=== PATIENT | female | born 1975 | race Caucasian/White ===

== ENCOUNTER 2021-11-09 16:44 | Emergency (ER) | payer OTHER ==
[2021-11-09 16:52] VITALS: BP 193/105
[2021-11-09 16:54] VITALS: BP 141/85
[2021-11-09 17:00] VITALS: BP 149/94
[2021-11-09] MEDS ORDERED: PREDNISONE50 MG PO (17:16)
[2021-11-09] MEDS ORDERED: FLEXERIL5 M1 PO (17:16)
[2021-11-09] MEDS ORDERED: TRAMADOL HYDROC50 M1 PO (17:16)
[2021-11-09 17:31] VITALS: BP 142/72
[2021-11-09 18:01] VITALS: BP 126/84
[2021-11-09 18:06] VITALS: BP 126/84
== END 2021-11-09 18:06 | disposition home or self-care (01) | DRG 552 ==
LOC: ED 16:44
DX: M54.42 Lumbago with sciatica, left side (principal); E11.9 Type 2 diabetes mellitus without complications

== ENCOUNTER 2021-12-22 22:13 | Emergency (ER) | payer OTHER ==
[~2021-12-22] VITALS: Ht 177.8 cm; Wt 100.0 kg
[~2021-12-22 22:13] MED LIST: FLEXERIL5 M1 PO; PREDNISONE50 MG PO; TRAMADOL HYDROC50 M1 PO
[2021-12-22 23:04] VITALS: BP 138/70
[2021-12-22 23:31] VITALS: BP 129/70
[2021-12-23] VITALS (7 sets, daily range): BP systolic 124–159; BP diastolic 62–95
[2021-12-23 00:08] LABS: HEMATOCRIT 45.3 % (37.0-47.0); HEMOGLOBIN 14.7 g/dl (12.0-16.0); IMMATURE GRANULOCYTES 0.3 % (0.0-5.0); MEAN CELL VOLUME 89.7 fL CALC (80.0-100.0); MEAN CORPUSCULAR HGB 29.1 pG CALC (26.0-32.0); MEAN CORPUSCULAR HGB CONC 32.5 g/dL CAL (32.0-36.0); NEUT# 6.41 thou/uL (2.00-7.15); RED BLOOD COUNT 5.05 mill/uL (4.20-5.60); RED CELL DISTRI WIDTH 12.9 % (11.5-15.5)
[2021-12-23 00:15] LABS: URINE BILIRUBIN - DIPSTICK NEGATIVE (NEGATIVE); URINE BLOOD DIPSTICK NEGATIVE (NEGATIVE); URINE COLOR YELLOW; URINE GLUCOSE - DIPSTICK >=1000 mg/dL (NEGATIVE); URINE KETONE NEGATIVE (NEGATIVE); URINE LEUK ESTERASE NEGATIVE (NEGATIVE); URINE PROTEIN - DIPSTICK NEGATIVE (NEG-TRACE); URINE SPECIFIC GRAVITY 1.015; URINE UROBILINOGEN - DIPSTICK 0.2 E.U./dL (0.2)
[2021-12-23 00:16] LABS: URINE NITRITE - DIPSTICK NEGATIVE (Negative)
[2021-12-23 00:30] LABS: ALBUMIN 4.2 g/dL (3.2-5.0); ALKALINE PHOSPHATASE 182 u/l (38-126); AMYLASE 86 u/l (30-110); ANION GAP 12 (6-22 (CALC)); BILIRUBIN, TOTAL 1.5 mg/dL (0.0-1.4); BUN 11 mg/dL (7-17); BUN/CREATININE RATIO 22 (12-20 (CALC)); CARBON DIOXIDE 22 mmol/l (22-30); CHLORIDE 108 mmol/l (95-108); CREATININE 0.5 mg/dL (0.5-1.0); GFR > 60 ML/MIN (>=60 (CALC)); GFR FOR AFR.AMER. > 60 ML/MIN (>=60 (CALC)); LIPASE 104 u/l (23-300); SGOT/AST 54 u/l (14-36); SODIUM 137 mmol/l (137-146); TOTAL PROTEIN 7.4 g/dL (6.3-8.2)
[2021-12-23 00:36] LABS: POTASSIUM 5.2 mmol/l (3.5-5.1)
[2021-12-23 00:40] LABS: INTERNATIONAL NORMALIZED RATIO 0.9 RATIO (0.7-1.3); PROTHROMBIN TIME 9.9 SECONDS (9.0-12.5)
[2021-12-23 00:42] LABS: MYOGLOBIN 8 ng/mL (0 - 62)
[2021-12-23] MEDS ORDERED: INDERAL 20MG TA20 MG PO (03:12)
== END 2021-12-23 04:13 | disposition home or self-care (01) | DRG 432 ==
LOC: ED 22:13
PROVIDERS: Emergency Medicine
DX: K74.60 Unspecified cirrhosis of liver (principal); I85.11 Secondary esophageal varices with bleeding; E11.9 Type 2 diabetes mellitus without complications; F17.200 Nicotine dependence, unspecified, uncomplicated; Z90.49 Acquired absence of other specified parts of digestive tract
CPT/HCPCS: Q9967; S0164